=== PATIENT | male | born 1930 | race Caucasian/White ===

== ENCOUNTER → 2016-07-26 | Outpatient (CLI) | payer OTHER, MEDICARE ==
[~2016-07-26] MED LIST: ASPI81TA28 PO; CIPR-255 PO; DUTA1CAP3 PO; FLM4 PO; INSHNI SQ; INSU1INJ17 SQ; INSU70IN2 SC; INSUINJ17 SQ; LISI40TA PO; PANT40TA PO
== END | disposition home or self-care (01) ==
LOC: C.LABSPEC 16:55
PROVIDERS: ATTEND Urology
DX: R82.90 Unspecified abnormal findings in urine (principal)

== ENCOUNTER → 2016-08-27 | Outpatient (CLI) | payer OTHER, MEDICARE ==
[2016-08-27 12:31] LABS: ALT/SGPT 23 U/L (12-78); BLOOD UREA NITROGEN 19 mg/dl (7-18); BUN/CREATININE RATIO 15.7 (10-20); CALCIUM 9.4 mg/dl (8.5-10.1); CARBON DIOXIDE 25 mmol/L (21-32); CHLORIDE 104 mmol/L (98-107); CHOLESTEROL 192 mg/dl (0-200); GLUCOSE 254 mg/dl (70-99); POTASSIUM 4.8 mmol/L (3.5-5.1); SODIUM 136 mmol/L (136-145); TRIGLYCERIDES 125 mg/dl (0-150); VERY LOW DENSITY LIPOPROT CALC 25 mg/dl
[2016-08-27 12:39] LABS: ESTIMATED AVERAGE GLUCOSE 174 mg/dl; HA1C FLAG Normal (Normal)
[2016-08-27 12:41] LABS: ALB/GLOB RATIO 1.1 (0.9-2); ALKALINE PHOSPHATASE 58 U/L (45-117); AST/SGOT 17 U/L (15-37); CHOLESTEROL/HDL RATIO 5.2; HDL CHOLESTEROL 37 mg/dl; LDL CHOLESTEROL CALCULATED 130 mg/dl
[2016-08-28 12:45] LABS: RATIO 41.5 mcg/mg (0-30.0)
== END | disposition home or self-care (01) ==
LOC: C.LAB1850 10:34
PROVIDERS: ATTEND Nurse Practitioner Adult Health
DX: I10 Essential (primary) hypertension (principal); E78.5 Hyperlipidemia, unspecified; E11.8 Type 2 diabetes mellitus with unspecified complications; E83.52 Hypercalcemia

== ENCOUNTER 2016-11-20 12:07 | Emergency (ER) | payer OTHER, MEDICARE ==
[~2016-11-20] VITALS: Ht 177.8 cm; Wt 81.1 kg
[~2016-11-20 12:07] MED LIST changes: -ASPI81TA28 PO; -DUTA1CAP3 PO; -FLM4 PO; -INSHNI SQ; -INSU1INJ17 SQ
[2016-11-20 12:22] VITALS: TEMP 36.3; O2SAT 98; Ht 177.8 cm; Wt 81.1 kg
[2016-11-20 12:52] LABS: BASO % 0.3 %; BASO ABS # 0.03 K/uL (0-0.2); COMPLETE YES; EOS % 2.4 %; HEMATOCRIT 43.6 % (42-52); IG% 0.2 %; LYMPH ABS # 2.15 K/uL (1.2-3.4); MEAN CELL VOLUME 94.6 fL (80-100); MEAN CORPUSCULAR HEMOGLOBIN 32.8 pg (25-34); MEAN CORPUSCULAR HGB CONC 34.6 g/dl (32-36); MEAN PLATELET VOLUME 10.5 fL (7.4-10.4); MONO % 13.6 %; NEUT % 62.5 %; PLATELET COUNT 173 K/uL (130-400); RED BLOOD COUNT 4.61 M/uL (4.7-6.1); WHITE BLOOD COUNT 10.24 K/uL (4.8-10.8)
--- NOTE | 2016-11-20 13:07 | DIAGNOSTIC IMAGING REPORT ---
CHEST ONE VIEW PORTABLE HISTORY: EVALUATE WEAKNESS COMPARISON: Chest 11/20/2016. FINDINGS: The heart is normal in size. Left subclavian Port-A-Cath terminates at the superior cavoatrial junction. No focal lung consolidations to suggest pneumonia. Mild diffuse interstitial thickening is likely chronic. No evidence for pulmonary edema. No pleural effusions. No pneumothorax. IMPRESSION: No significant change compared to the prior study. No acute process. Stable mild chronic interstitial thickening. Electronically signed by: Issa Ordaz M.D. 11/20/2016 1:05 PM Dictated Date/Time: 11/20/2016 1:03 PM
[2016-11-20 13:13] LABS: ALT/SGPT 25 U/L (12-78); BLOOD UREA NITROGEN 13 mg/dl (7-18); BUN/CREATININE RATIO 11.1 (10-20); CALCIUM 9.9 mg/dl (8.5-10.1); CARBON DIOXIDE 28 mmol/L (21-32); CHLORIDE 103 mmol/L (98-107); GLUCOSE 63 mg/dl (70-99); MAGNESIUM 2.4 mg/dl (1.8-2.4); POTASSIUM 4.7 mmol/L (3.5-5.1); SODIUM 137 mmol/L (136-145)
--- NOTE | 2016-11-20 13:14 | DIAGNOSTIC IMAGING REPORT ---
HEAD CT NONCONTRAST CT DOSE: 537.48 mGy.cm HISTORY: EVALUATE WEAKNESS TECHNIQUE: Multiaxial CT images of the head were performed without the use of intravenous contrast. Automated exposure control was utilized for this study. Comparison: None. Findings: Mild mucosal thickening within the ethmoid air cells. The mastoid air cells are clear. The calvarium and skull base are intact. There is no mass, hematoma, midline shift, acute infarct. White matter hypodensity is nonspecific but suggestive of microvascular ischemic change. The ventricles and sulci demonstrate mild age-related involutional changes. Impression: No acute intracranial abnormality. Electronically signed by: Issa Ordaz M.D. 11/20/2016 1:13 PM Dictated Date/Time: 11/20/2016 1:05 PM
[2016-11-20 13:24] LABS: ALKALINE PHOSPHATASE 70 U/L (45-117); AST/SGOT 22 U/L (15-37)
[2016-11-20] MEDS ORDERED: DEXTROSE 50% 50 ML SYR IV STA (13:47)
[2016-11-20 14:28] LABS: MANUAL MICROSCOPIC REQUIRED? NO; REVIEW REQ? NO; URINE APPEARANCE CLEAR (CLEAR); URINE BILIRUBIN NEG (NEG); URINE COLOR YELLOW; URINE NITRITE NEG (NEG); URINE PH 8.5 (4.5-7.5); URINE SPECIFIC GRAVITY 1.014 (1.000-1.030); UROBILINOGEN NEG (NEG)
[2016-11-20] MEDS ORDERED: ASPI81TA28 PO (14:31)
[2016-11-20] MEDS ORDERED: DUTA1CAP3 PO (14:31)
[2016-11-20] MEDS ORDERED: FLM4 PO (14:31)
[2016-11-20] MEDS ORDERED: INSHNI SQ (14:40)
[2016-11-20] MEDS ORDERED: INSU1INJ17 SQ (14:40)
[2016-11-20 18:37] VITALS: BP 125/87; PULSE 89; O2SAT 98
--- NOTE | 2016-11-20 18:49 | EMERGENCY ROOM VISIT NOTE ---
History Report prepared by Noman: Karma Palacio Under the Supervision of: Dr. Rafael Marroquin M.D. First contact with patient: 12:10 Chief Complaint: ALTERED MENTAL STATUS Stated Complaint: ALTERED MENTAL STATUS History of Present Illness The patient is a 86 year old male who presents to the Emergency Room with complaints of an episode of altered mental status occurring prior to arrival. Per the patient and nursing staff, the patient left his home around 10am this morning. [facility] was [facility] in [facility]. He is a diabetic and his blood sugar level was taken and it was 37. The patient was given 25 mg D10 by EMS. The patient is feeling good now. He did eat breakfast this morning and took his insulin. His blood sugar level was 107 when he checked this morning. The patient has had low blood sugar before. Pt denies general pain, LOC, headache, fevers, chills, diaphoresis, visual changes, neck pain, chest pain, breathing difficulties, nausea, vomiting, abdominal pain, back pain, melena, hematochezia, urinary symptoms, numbness, weakness, lymphadenopathy, rash, or other complaints. Source of History: patient Onset: [employer] Position: other (global) Quality: other (altered mental status) Timing: other (episode) Associated Symptoms: No LOC, No fevers, No chest pain Review of Systems See HPI for pertinent positives and negatives. A total of ten systems were reviewed and were otherwise negative. Past Medical & Surgical Medical Problems: (1) Diabetes (2) Hypertension (3) Hypoglycemia Family History Patient reports no known family medical history. Social History Alcohol Use: none Drug Use: none Marital Status: in relationship Occupation Status: retired Current/Historical Medications Scheduled Aspirin (Aspirin Ec), 81 MG PO QAM Dutasteride (Dutasteride), 0.5 MG PO QPM Insulin Human NPH (Humulin N), 3 UNITS SQ TID Insulin Isophane & Reg (Human) (Novolin 70/30 Relion), Unknown Dose SQ QPM Lisinopril (Zestril), 40 MG PO DAILY Pantoprazole (Protonix), 40 MG PO BID Tamsulosin HCl (Tamsulosin HCl), 0.4 MG PO QPM Allergies Coded Allergies: No Known Allergies (Verified , 11/20/16) Physical Exam Vital Signs Date Time Temp Pulse Resp B/P (MAP) Pulse Ox O2 Delivery O2 Flow Rate FiO2 11/20/16 18:37 89 20 125/87 98 Room Air 11/20/16 16:59 96 18 98 Room Air 11/20/16 16:41 93 11/20/16 16:00 105 18 172/80 98 Room Air 11/20/16 15:24 88 18 164/93 95 Room Air 11/20/16 13:53 90 18 133/69 91 Room Air 11/20/16 12:44 80 16 208/92 100 Room Air 11/20/16 12:22 36.3 83 18 204/117 98 Room Air 11/20/16 12:22 98 Room Air 11/20/16 12:18 79 Physical Exam GENERAL: Awake, alert, well-appearing, in no distress HENT: Normocephalic, atraumatic. Oropharynx unremarkable. EYES: Normal conjunctiva. Sclera non-icteric. NECK: Supple. No nuchal rigidity. FROM. No JVD. RESPIRATORY: Clear to auscultation. CARDIAC: Regular rate, normal rhythm. Extremities warm and well perfused. Pulses equal. ABDOMEN: Soft, non-distended. No tenderness to palpation. No rebound or guarding. No masses. RECTAL: Deferred. MUSCULOSKELETAL: Chest examination reveals no tenderness. The back is symmetrical on inspection without obvious abnormality. There is no CVA tenderness to palpation. No joint edema. LOWER EXTREMITIES: Calves are equal size bilaterally and non-tender. No edema. No discoloration. NEURO: Normal sensorium. No sensory or motor deficits noted. No drift. SKIN: No rash or jaundice noted. Medical Decision & Procedures ER Provider Diagnostic Interpretation: Radiology results as stated below per my review and radiologist interpretation: HEAD CT NONCONTRAST CT DOSE: 537.48 mGy.cm HISTORY: EVALUATE WEAKNESS TECHNIQUE: Multiaxial CT images of the head were performed without the use of intravenous contrast. Automated exposure control was utilized for this study. Comparison: None. Findings: Mild mucosal thickening within the ethmoid air cells. The mastoid air cells are clear. The calvarium and skull base are intact. There is no mass, hematoma, midline shift, acute infarct. White matter hypodensity is nonspecific but suggestive of microvascular ischemic change. The ventricles and sulci demonstrate mild age-related involutional changes. Impression: No acute intracranial abnormality. Electronically signed by: Issa Ordaz M.D. 11/20/2016 1:13 PM Dictated Date/Time: 11/20/2016 1:05 PM CHEST ONE VIEW PORTABLE HISTORY: EVALUATE WEAKNESS COMPARISON: Chest 11/20/2016. FINDINGS: The heart is normal in size. Left subclavian Port-A-Cath terminates at the superior cavoatrial junction. No focal lung consolidations to suggest pneumonia. Mild diffuse interstitial thickening is likely chronic. No evidence for pulmonary edema. No pleural effusions. No pneumothorax. IMPRESSION: No significant change compared to the prior study. No acute process. Stable mild chronic interstitial thickening. Electronically signed by: Issa Ordaz M.D. 11/20/2016 1:05 PM Dictated Date/Time: 11/20/2016 1:03 PM Laboratory Results 11/20/16 12:39 Red Blood Count 4.61, Mean Corpuscular Volume 94.6, Mean Corpuscular Hemoglobin 32.8, Mean Corpuscular Hemoglobin Concent 34.6, Mean Platelet Volume 10.5, Neutrophils (%) (Auto) 62.5, Lymphocytes (%) (Auto) 21.0, Monocytes (%) (Auto) 13.6, Eosinophils (%) (Auto) 2.4, Basophils (%) (Auto) 0.3, Neutrophils # (Auto ) 6.40, Lymphocytes # (Auto) 2.15, Monocytes # (Auto) 1.39, Eosinophils # (Auto ) 0.25, Basophils # (Auto) 0.03 11/20/16 12:39 Test 11/20/16 12:39 11/20/16 14:05 11/20/16 17:02 White Blood Count 10.24 K/uL (4.8-10.8) Red Blood Count 4.61 M/uL (4.7-6.1) Hemoglobin 15.1 g/dL (14.0-18.0) Hematocrit 43.6 % (42-52) Mean Corpuscular Volume 94.6 fL (80-100) Mean Corpuscular Hemoglobin 32.8 pg (25-34) Mean Corpuscular Hemoglobin Concent 34.6 g/dl (32-36) Platelet Count 173 K/uL (130-400) Mean Platelet Volume 10.5 fL (7.4-10.4) Neutrophils (%) (Auto) 62.5 % Lymphocytes (%) (Auto) 21.0 % Monocytes (%) (Auto) 13.6 % Eosinophils (%) (Auto) 2.4 % Basophils (%) (Auto) 0.3 % Neutrophils # (Auto) 6.40 K/uL (1.4-6.5) Lymphocytes # (Auto) 2.15 K/uL (1.2-3.4) Monocytes # (Auto) 1.39 K/uL (0.11-0.59) Eosinophils # (Auto) 0.25 K/uL (0-0.5) Basophils # (Auto) 0.03 K/uL (0-0.2) RDW Standard Deviation 44.7 fL (36.4-46.3) RDW Coefficient of Variation 13.0 % (11.5-14.5) Immature Granulocyte % (Auto) 0.2 % Immature Granulocyte # (Auto) 0.02 K/uL (0.00-0.02) Prothrombin Time 11.0 SECONDS (9.0-12.0) Prothromb Time International Ratio 1.0 (0.9-1.1) Activated Partial Thromboplast Time 25.0 SECONDS (21.0-31.0) Partial Thromboplastin Ratio 1.0 Anion Gap 6.0 mmol/L (3-11) Est Creatinine Clear Calc Drug Dose 44.8 ml/min Estimated GFR () 62.6 Estimated GFR (Non- 54.0 BUN/Creatinine Ratio 11.1 (10-20) Calcium Level 9.9 mg/dl (8.5-10.1) Magnesium Level 2.4 mg/dl (1.8-2.4) Total Bilirubin 0.4 mg/dl (0.2-1) Direct Bilirubin < 0.1 mg/dl (0-0.2) Aspartate Amino Transf (AST/SGOT) 22 U/L (15-37) Alanine Aminotransferase (ALT/SGPT) 25 U/L (12-78) Alkaline Phosphatase 70 U/L (45-117) Troponin I < 0.015 ng/ml (0-0.045) Total Protein 7.5 gm/dl (6.4-8.2) Albumin 3.7 gm/dl (3.4-5.0) Lipase 93 U/L (73-393) Thyroid Stimulating Hormone (TSH) 1.070 uIu/ml (0.300-4.500) Urine Color YELLOW Urine Appearance CLEAR (CLEAR) Urine pH 8.5 (4.5-7.5) Urine Specific [place] 1.014 (1.000-1.030) Urine Protein NEG (NEG) Urine Glucose (UA) 1+ (NEG) Urine Ketones NEG (NEG) Urine Occult Blood NEG (NEG) Urine Nitrite NEG (NEG) Urine Bilirubin NEG (NEG) Urine Urobilinogen NEG (NEG) Urine Leukocyte Esterase MODERATE (NEG) Urine WBC (Auto) >30 /hpf (0-5) Urine RBC (Auto) 0-4 /hpf (0-4) Urine Hyaline Casts (Auto) 1-5 /lpf (0-5) Urine Epithelial Cells (Auto) 10-20 /lpf (0-5) Urine Bacteria (Auto) NEG (NEG) Bedside Glucose 188 mg/dl (70-99) Laboratory results reviewed by me Medications Administered Medications (Trade) Dose Ordered Sig/Opal Route Start Time Stop Time Status Last Admin Dose Admin Dextrose (Dextrose 50% 50ML Syringe) 50 ml NOW STAT IV 11/20/16 13:47 11/20/16 13:48 DC 11/20/16 13:51 50 ML ECG Indication: altered mental status Rate (beats per minute): 79 Rhythm: normal sinus Findings: no acute ischemic change, no ectopy ED Course 1211: The patient was evaluated in room A10. A complete history and physical exam was performed. 1347: Dextrose 50% 50 ML Syringe 50 ml IV. 1412: I reevaluated the patient. 1556: The patient's hypoglycemia has resolved. 1722: The patient's daughter is on her way to the ED. 1842: Patient eating dinner. Family arrived. Pt is doing well. They are comfortable with conservative management and PCP follow up. This has happened before per the daughter. Hypoglycemia avoidance discussed with patient. Reviewed instructions. Pt. discharged. Medical Decision Medication Reconciliation: I attest that I have personally reviewed the patient' s current medication list Blood pressure screening: Patient was found to have an elevated blood pressure and was referred to their primary doctor for recheck and further treatment. Triage Nursing notes reviewed. The patient's presentation and history were concerning for altered mental status. Etiologies such as metabolic, infection, hypo/hyperglycemia, electrolyte abnormalities, cardiac sources, intracerebral event, toxicologic, neurologic, as well as others were entertained. Patient was evaluated. He had hypoglycemia and this was treated by EMS. He got better. The patient started to feel shaky and his blood glucose was mildly low here. He was rechecked and he is even lower in the 40s. He was given 1 amp of D50 which helped significantly. The patient was given lunch. He was monitored. His sugar improved. He was mildly hyperglycemic. His CT imaging did not reveal any findings. His CBC, chemistry panel, coags, TSH and troponin were unremarkable. I suspect the patient experienced a hypoglycemic episode which would explain the altered mental status. Hypoglycemia was corrected and he did much better. His daughter, who is a nurse was contacted. She arrived in the ER. Reviewed all the issues. Comfortable with outpatient follow up . 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 By the evaluation outlined above other emergent etiologies such as those listed in the differential, as well as others, were deemed relatively unlikely. The patient was educated about the findings as listed above. All questions were answered and the patient was pleased with the treatment. Return instructions were outlined and the patient was discharged in stable condition. The patient was referred to his PCP tomorrow for follow-up for a recheck of the current condition. Impression Primary Impression: Hypoglycemia Scribe Attestation The scribe's documentation has been prepared under my direction and personally reviewed by me in its entirety. I confirm that the note above accurately reflects all work, treatment, procedures, and medical decision making performed by me. Departure Information Dispostion Home / Self-Care Referrals Libertad Peña MD (PCP) Patient Instructions My [facility] Additional Instructions Follow-up with your primary office tomorrow. Rest and drink plenty of fluids. No driving until cleared by your primary physician. Eat well and take your blood sugar at least 4 times a day or more often as needed. Return to the ER for headache, chest pain, abdominal pain, blood sugar problems , confusion, passing out, difficulty breathing, fevers, numbness, tingling, worsening of your condition, or as needed.
== END 2016-11-20 18:59 | disposition home or self-care (01) ==
LOC: EDBD 12:07 → C.EDA 12:09
DX: E16.2 Hypoglycemia, unspecified (principal); E11.9 Type 2 diabetes mellitus without complications; I10 Essential (primary) hypertension; Z79.4 Long term (current) use of insulin; Z79.82 Long term (current) use of aspirin; Z79.899 Other long term (current) drug therapy

== ENCOUNTER → 2017-02-26 | Outpatient (CLI) | payer OTHER, MEDICARE ==
[~2017-02-26] MED LIST changes: +ASPI81TA28 PO; -CIPR-255 PO; +DUTA1CAP3 PO; +FLM4 PO; +INSHNI SQ; +INSU1INJ17 SQ; -INSU70IN2 SC; -INSUINJ17 SQ
[2017-02-26 13:51] LABS: CALCIUM 10.8 mg/dl (8.5-10.1)
== END | disposition home or self-care (01) ==
LOC: C.LAB1850 11:01
PROVIDERS: ATTEND Nurse Practitioner Adult Health
DX: E83.52 Hypercalcemia (principal); E10.319 Type 1 diabetes mellitus with unspecified diabetic retinopathy without macular edema

== ENCOUNTER → 2017-05-31 | Outpatient (CLI) | payer OTHER, MEDICARE ==
[2017-05-31 16:25] LABS: ALBUMIN 3.7 gm/dl (3.4-5.0); CALCIUM 10.2 mg/dl (8.5-10.1); CREATININE 1.17 mg/dl (0.60-1.40)
== END | disposition home or self-care (01) ==
LOC: C.LAB1850 12:03
PROVIDERS: ATTEND Internal Medicine Endocrinology, Diabetes & Metabolism
DX: E83.52 Hypercalcemia (principal)

== ENCOUNTER → 2017-06-07 | Day surgery (SDC) | payer OTHER, MEDICARE ==
[~2017-06-07] VITALS: Ht 177.8 cm; Wt 79.5 kg
[~2017-06-07] MED LIST changes: +ZOLEDRONIC ACID INJ 5 MG in EMPTY BAG 0 ML IV SCH
[2017-06-07 09:00] VITALS: BP 152/78; PULSE 87; TEMP 36.4; O2SAT 96; Ht 177.8 cm; Wt 79.5 kg
== END | disposition home or self-care (01) ==
LOC: C.MTU 08:53
PROVIDERS: ATTEND Internal Medicine Endocrinology, Diabetes & Metabolism
DX: M85.80 Other specified disorders of bone density and structure, unspecified site (principal); E21.3 Hyperparathyroidism, unspecified

== ENCOUNTER → 2017-07-01 | Outpatient (CLI) | payer OTHER, MEDICARE ==
[~2017-07-01] MED LIST changes: -ZOLEDRONIC ACID INJ 5 MG in EMPTY BAG 0 ML IV SCH
[2017-07-01 13:30] LABS: HEMOGLOBIN A1C 8.4 % (4.5-5.6)
[2017-07-01 14:05] LABS: BLOOD UREA NITROGEN 27 mg/dl (7-18); CALCIUM 9.9 mg/dl (8.5-10.1); CARBON DIOXIDE 26 mmol/L (21-32); CREATININE 1.16 mg/dl (0.60-1.40); GLUCOSE 252 mg/dl (70-99); POTASSIUM 4.2 mmol/L (3.5-5.1); SODIUM 132 mmol/L (136-145)
== END | disposition home or self-care (01) ==
LOC: C.LAB1850 10:49
PROVIDERS: ATTEND Nurse Practitioner Adult Health
DX: M85.80 Other specified disorders of bone density and structure, unspecified site (principal); E10.29 Type 1 diabetes mellitus with other diabetic kidney complication; Z79.4 Long term (current) use of insulin

== ENCOUNTER → 2017-07-08 | Outpatient (CLI) | payer OTHER, MEDICARE ==
--- NOTE | 2017-07-08 10:39 | DIAGNOSTIC IMAGING REPORT ---
KUB CLINICAL HISTORY: 86 years-old Male presenting with E83.52 [id number]. TECHNIQUE: Single supine view of the abdomen was obtained. COMPARISON: 05/07/2016. FINDINGS: Moderate stool burden in the right colon. Nonobstructive bowel gas pattern. No gross pneumoperitoneum. An anastomotic suture line may be present in the right mid abdomen. Redemonstration of bilateral renal calculi. Stable distribution of pelvic phleboliths. No convincing evidence of ureteral calculi. Atherosclerosis. Severe degenerative changes of the lumbar spine. Lung bases clear. IMPRESSION: 1. Moderate stool burden in the right colon. No bowel obstruction. 2. Bilateral nephrolithiasis. Electronically signed by: Gigi Spence M.D. 07/08/2017 10:38 AM Dictated Date/Time: 07/08/2017 10:37 AM
== END | disposition home or self-care (01) ==
LOC: C.RAD 10:03
PROVIDERS: ATTEND Internal Medicine Endocrinology, Diabetes & Metabolism
DX: E21.3 Hyperparathyroidism, unspecified (principal); E83.52 Hypercalcemia; K59.00 Constipation, unspecified; N20.0 Calculus of kidney

== ENCOUNTER → 2017-07-23 | Outpatient (CLI) | payer OTHER, MEDICARE | END | disposition home or self-care (01) | LOC: C.LABSPEC 10:47 | PROVIDERS: ATTEND Urology | DX: E66.9 Obesity, unspecified (principal); E10.29 Type 1 diabetes mellitus with other diabetic kidney complication; R39.9 Unspecified symptoms and signs involving the genitourinary system ==